=== PATIENT | female | born 1940 | race Caucasian/White ===

== ENCOUNTER 2020-11-12 09:29 | Emergency (ER) | payer MEDICARE ==
[~2020-11-12 09:29] MED LIST: LOVAZA1 GM PO; PRILOSEC20 MG PO; VITAMIN D-32000 UNIT PO
[2020-11-12 10:16] LABS: BASOPHIL 0.9 % (0-2); HCT 42.2 % (37.0-47.0); HGB 13.9 g/dl (12.5-16.0); LYMPHOCYTE 15.8 % (15-48); MCH 26.8 pg (25.0-31.0); MCHC 32.9 g/dL (32.0-36.0); MCV 81.3 fL (78.0-100.0); MONOCYTE 8.7 % (0-12); MPV 10.9 fL (6.0-9.5); NEUTROPHIL 69.2 % (41-80); NRBC 0; PLT 195 K/uL (150-400); RBC 5.19 M/uL (4.20-5.40); RDW 14.6 % (11.5-14.0)
[2020-11-12 10:59] LABS: CREATININE 0.74 mg/dL (0.51-0.95)
[2020-11-12 11:00] LABS: ALBUMIN 3.5 g/dL (3.4-5.0); BILIRUBIN - TOTAL 0.5 mg/dL (0.2-1.0); POTASSIUM 3.9 mmol/L (3.5-5.1); PRO-BNP 741 pg/mL (<450); TOTAL PROTEIN 6.5 g/dL (6.4-8.2)
== END 2020-11-12 11:20 | disposition home or self-care (01) ==
LOC: FER 09:29
PROVIDERS: Emergency Medicine
DX: R06.02 Shortness of breath (principal); R05 Cough; I25.10 Atherosclerotic heart disease of native coronary artery without angina pectoris; J44.9 Chronic obstructive pulmonary disease, unspecified; Z86.73 Personal history of transient ischemic attack (TIA), and cerebral infarction without residual deficits; Z95.0 Presence of cardiac pacemaker; Z88.5 Allergy status to narcotic agent
CPT/HCPCS: 36415; 71045; 80053; 83880; 84484; 85025; 93005

== ENCOUNTER 2021-01-25 20:24 | Inpatient (IN) | payer MEDICARE ==
[~2021-01-25] VITALS: Ht 152.4 cm; Wt 76.5 kg
[2021-01-25 21:22] LABS: BASOPHIL 0.2 % (0-2); EOSINOPHIL 0 % (0-7); HCT 41.5 % (37.0-47.0); HGB 13.6 g/dl (12.5-16.0); LYMPHOCYTE 5.1 % (15-48); MCH 26.1 pg (25.0-31.0); MCHC 32.8 g/dL (32.0-36.0); MCV 79.7 fL (78.0-100.0); MONOCYTE 6.5 % (0-12); NEUTROPHIL 87.8 % (41-80); NRBC 0; PLT 146 K/uL (150-400); RBC 5.21 M/uL (4.20-5.40); RDW 15.4 % (11.5-14.0); WBC 9.3 K/uL (4.0-10.5)
[2021-01-25 21:41] LABS: ALBUMIN 3.4 g/dL (3.4-5.0); BILIRUBIN - TOTAL 0.5 mg/dL (0.2-1.0); BUN/CREAT RATIO (CALC) 36.5 RATIO; CREATININE 0.85 mg/dL (0.51-0.95); GLOBULIN (CALCULATION) 3.7 g/dL; POTASSIUM 3.4 mmol/L (3.5-5.1); TOTAL PROTEIN 7.1 g/dL (6.4-8.2)
[2021-01-25 21:44] LABS: LACTIC ACID 1.5 mmol/L (0.4-1.9)
[2021-01-25 23:10] LABS: BILIRUBIN NEGATIVE (NEGATIVE); BLOOD TRACE-INTACT Ery/uL (NEGATIVE); CLARITY HAZY (CLEAR); COLOR YELLOW (YELLOW); GLUCOSE (U) NORMAL (NORMAL); LEUKOCYTES 3+ Leu/uL (NEGATIVE); NITRITE NEGATIVE (NEGATIVE); PROTEIN 1+ mg/dL (NEGATIVE); SPECIFIC GRAVITY 1.015 (1.001-1.030); UROBILINOGEN 0.2 mg/dL (0.2-1.0)
[2021-01-25 23:18] LABS: BACTERIA 3+; SQUAMOUS EPITHELIAL CELLS >50; URINARY RBC RARE; URINARY WBC TNTC
[2021-01-26] MEDS ORDERED: ONDANSETRON ODT4 MG PO (04:20)
[2021-01-26] MEDS ORDERED: AZITHROMYCIN250 MG PO (04:20)
[2021-01-26] MEDS ORDERED: VENTOLIN HFA18 GM INH (04:22)
[2021-01-26] MEDS ORDERED: MEDROL 4MG DOSEP4 MG PO (04:22)
[2021-01-26] MEDS ORDERED: CEPHALEXIN500 MG PO (04:24)
[2021-01-26 13:04] LABS: BILIRUBIN NEGATIVE (NEGATIVE); BLOOD TRACE-INTACT Ery/uL (NEGATIVE); CLARITY HAZY (CLEAR); COLOR YELLOW (YELLOW); GLUCOSE (U) NORMAL (NORMAL); LEUKOCYTES NEGATIVE Leu/uL (NEGATIVE); NITRITE NEGATIVE (NEGATIVE); PROTEIN NEGATIVE (NEGATIVE); SPECIFIC GRAVITY 1.015 (1.001-1.030); UROBILINOGEN 0.2 mg/dL (0.2-1.0); pH 6.5 (5.0-9.0)
[2021-01-26 13:16] LABS: URINARY WBC RARE
[2021-01-26] MEDS ORDERED: OS-CAL500 MG PO (15:49)
[2021-01-26] MEDS ORDERED: DITROPAN5 MG PO (15:53)
[2021-01-26] MEDS ORDERED: NORVASC5 MG PO (15:54)
[2021-01-26] MEDS ORDERED: LASIX20 MG PO (15:55)
[2021-01-26] MEDS ORDERED: TOPROL XL 25MG25 MG PO (15:56)
[2021-01-26] MEDS ORDERED: PLAVIX75 MG PO (15:57)
[2021-01-27 05:05] LABS: BILIRUBIN NEGATIVE (NEGATIVE); BLOOD 3+ Ery/uL (NEGATIVE); CLARITY CLOUDY (CLEAR); COLOR RED (YELLOW); GLUCOSE (U) NORMAL (NORMAL); LEUKOCYTES 1+ Leu/uL (NEGATIVE); NITRITE POSITIVE (NEGATIVE); PROTEIN 3+ mg/dL (NEGATIVE); SPECIFIC GRAVITY 1.025 (1.001-1.030); pH 6.5 (5.0-9.0)
[2021-01-27 06:17] LABS: BASOPHIL 0 % (0-2); EOSINOPHIL 0 % (0-7); HCT 39.7 % (37.0-47.0); LYMPHOCYTE 9.7 % (15-48); MCH 26.2 pg (25.0-31.0); MCHC 32.7 g/dL (32.0-36.0); MCV 79.9 fL (78.0-100.0); MONOCYTE 4.4 % (0-12); NEUTROPHIL 85.3 % (41-80); NRBC 0; PLT 138 K/uL (150-400); RBC 4.97 M/uL (4.20-5.40); RDW 15.4 % (11.5-14.0); WBC 5.3 K/uL (4.0-10.5)
[2021-01-27 06:35] LABS: BUN/CREAT RATIO (CALC) 24.6 RATIO; CREATININE 0.61 mg/dL (0.51-0.95); POTASSIUM 3.3 mmol/L (3.5-5.1)
--- NOTE | 2021-01-27 14:52 | NUR ---
01/27/21 Ms Bravo is unable to participate in an assessment due to lethargy. Per ED report, patient was living at home with a son and had a caregiver. I was reported; the caregiver and son both have COVIS and are unable to care for Ms. Bravo. Multiple phone messages have been left on the home answering kevin. Attempts have been made to reach Tanmay Bravo, son, at [phone]. No one answers nor is there voicemail. - Nursing has been requested to share any information from family who may call to check on the patient.
[2021-01-28] MEDS ORDERED: NITROFURANTOIN100 M1 PO (14:47)
[2021-01-28] MEDS ORDERED: ELIQUIS5 MG PO (14:47)
--- NOTE | 2021-01-28 14:47 | NUR ---
01/28/21 Ms. Bravo is much improved and ready for discharge. Her son / POA, Mahad Bravo, , would like [facility] . [facility] accepted. Affliation understood. 02 is not required. - Mahad reports that his brother, Billy Bravo, , has been living in the home and also has COVID. Ms. Bravo had a caregiver 2 days a week. The caregiver also has COVID. - Ms. Bravo has a rw.
[2021-01-28] MEDS ORDERED: BACTRIM DS TAB1 EACH PO (16:12)
== END 2021-01-28 16:46 | disposition home health service (06) | DRG 177 ==
LOC: FER 20:24 → FMS 01-26 12:34
PROVIDERS: Emergency Medicine; Nurse Practitioner; ADMIT Allergy & Immunology Allergy
PROC: XW033G6 Introduction of REGN-COV2 Monoclonal Antibody into Peripheral Vein, Percutaneous Approach, New Technology Group 6 (ICD-10-PCS; principal; 2021-01-26)
PROC: 8E0ZXY6 Isolation (ICD-10-PCS; 2021-01-26)
DX: U07.1 COVID-19 (principal); I26.99 Other pulmonary embolism without acute cor pulmonale; J12.82 Pneumonia due to coronavirus disease 2019; N39.0 Urinary tract infection, site not specified; I11.0 Hypertensive heart disease with heart failure; I50.9 Heart failure, unspecified; E78.00 Pure hypercholesterolemia, unspecified; I25.10 Atherosclerotic heart disease of native coronary artery without angina pectoris; K21.9 Gastro-esophageal reflux disease without esophagitis; M85.80 Other specified disorders of bone density and structure, unspecified site; Z88.5 Allergy status to narcotic agent; Z95.0 Presence of cardiac pacemaker; Z86.73 Personal history of transient ischemic attack (TIA), and cerebral infarction without residual deficits; Z95.5 Presence of coronary angioplasty implant and graft; Z79.02 Long term (current) use of antithrombotics/antiplatelets; Z79.899 Other long term (current) drug therapy; Z98.890 Other specified postprocedural states; Z88.0 Allergy status to penicillin
CPT/HCPCS: 36415; 70450; 71045; 71275; 80048; 80053; 80202; 81001; 81003; 83605; 84484; 85025; 86140; 87040; 87077; 87186; 93005; 97163; 97166; 97530-GP; 97535; J0692; J0696; J3370; J7030; J7050; J7120; J8540; Q0244; Q9967; U0002